=== PATIENT | male | born 1985 | race Caucasian/White ===

== ENCOUNTER 2021-10-20 00:59 | Day surgery (SDC) | payer OTHER, SELFPAY ==
[2021-10-09 09:04] VITALS: BMI 27.4
[2021-10-20 07:45] VITALS: BP 112/75; PULSE 68; RESP 16; TEMP 36.2; O2SAT 100
[2021-10-20] MEDS: LACTATED RINGERS 1,000 ML 150 ML IV CONT (07:53)
--- NOTE | 2021-10-20 08:48 | WPDANESEPPF ---
Anes - Initial Pre Proc Eval Procedure: Operation Date: 10/20/21 09:00 Proposed Procedures p Esophagogastroduodenoscopy - Darryl Owusu MD Date/Time: 10/20/21 08:48 Surgeon: Darryl Owusu MD Pre Op Diagnosis: Baer's Esophagus Patient Data Age: 36 Gender: M Height: 1.7 m Weight: 79.5 kg Last Vital Signs Temp 97.1 F L 10/20/21 07:45 Pulse 68 10/20/21 07:45 Resp 16 10/20/21 07:45 BP 112/75 10/20/21 07:45 Pulse Ox 100 10/20/21 07:45 O2 Del Method Room Air 10/20/21 07:45 Allergies Allergy/AdvReac Type Severity Reaction Status Date / Time diphenhydramine Allergy Mild Hives / Verified 10/20/21 07:44 Red Face Home Medications Medication Instructions Recorded Confirmed Type levothyroxine 50 mcg capsule 50 mcg PO DAILY 10/23/19 10/20/21 History montelukast 10 mg tablet 10 mg PO DAILY 10/23/19 10/20/21 History pantoprazole 40 mg tablet,delayed 40 mg PO QAM 10/23/19 10/20/21 History release amlodipine 10 mg tablet 10 mg PO DAILY 10/09/21 10/20/21 History losartan 100 mg tablet 100 mg PO DAILY 10/09/21 10/20/21 History Patient hx anesthesia problems: none Family hx anesthesia problems: none Results Review: All pre-operative results and documents have been reviewed as part of the pre-operative evaluation. [facility] Family History Family History Father Heart attack Sibling Thyroid condition Social History Social History Smoking status: Never smoker Alcohol intake: never Substance use: current Substance use type: marijuana Other substance usage details: daily marijuana for anxiety and stress Living arrangements: with family Additional living arrangements comments: his son lives with him Spiritual care concerns: No Anes - Eval Final PreProcedure Day of Procedure 10/20/21 08:48 Patient weight: normal Heart: regular rate and rhythm Lungs: clear to auscultation Airway: Mallampati scale class II Neurological: alert and oriented Last oral intake: >/= 8 hours ASA classification: II Emergent: no Anesthetic plan: proceed Anesthesia type and monitoring: general GIVS and standard monitoring Results Review: All pre-operative results and documents have been reviewed as part of the pre-operative evaluation. Informed Consent: The patient's anesthetic plan and its attendant risks and benefits were discussed with the patient/family/POA. Questions were solicited and answers provided to the satisfaction of the patient/family/POA.
--- NOTE | 2021-10-20 08:49 | PM.HPGS ---
History of Present Illness History of Present Illness Consent: Risks, benefits, and alternatives have been discussed and questions answered. Patient agrees to proceed with procedure. Chief complaint: Baer's Esophagus Narrative: Emerson Gloria is a 36 year old male with history of Baer's on ppi daily, his last EGD 5 years ago and was told to follow-up in 3. GERD is controlled with ppi Review of Systems Constitutional: Constitutional: Denies headache(s) and Denies weakness Eyes: Eyes: Denies blurry vision ENT: Reports Normal hearing present, Denies headache(s) and Denies neck pain Cardiovascular: Cardiovascular: Denies chest pain and Denies dyspnea Respiratory: Respiratory: Denies dyspnea Gastrointestinal: Gastrointestinal: Reports no additional gastrointestinal complaints Genitourinary: Genitourinary: Denies dysuria Musculoskeletal: Musculoskeletal: Denies neck pain Integumentary/Breasts: Skin/Breast: Denies dry skin Neurologic: Reports Normal hearing present, Denies headache(s) and Denies weakness Psychiatric: Psychiatric: Denies anxiety Endocrine: Endocrine: Denies change in body appearance Hematologic/Lymphatic: Hematologic/Lymphatic: Denies easy bleeding Allergic/Immunologic: Allergic/Immunologic: Denies urticaria PMFSH Past Medical History Medical History (Updated 10/20/21 @ 08:50 by Darryl Owusu MD) Baer esophagus GERD (gastroesophageal reflux disease) Family History Family History Father Heart attack Sibling Thyroid condition Social History Social History Smoking status: Never smoker Alcohol intake: never Substance use: current Substance use type: marijuana Other substance usage details: daily marijuana for anxiety and stress Living arrangements: with family Additional living arrangements comments: his son lives with him Spiritual care concerns: No Meds Home Medications and Allergies Home Medications Medication Instructions Recorded Confirmed Type levothyroxine 50 mcg capsule 50 mcg PO DAILY 10/23/19 10/20/21 History montelukast 10 mg tablet 10 mg PO DAILY 10/23/19 10/20/21 History pantoprazole 40 mg tablet,delayed 40 mg PO QAM 10/23/19 10/20/21 History release amlodipine 10 mg tablet 10 mg PO DAILY 10/09/21 10/20/21 History losartan 100 mg tablet 100 mg PO DAILY 10/09/21 10/20/21 History Allergies Allergy/AdvReac Type Severity Reaction Status Date / Time diphenhydramine Allergy Mild Hives / Verified 10/20/21 07:44 Red Face Vital Signs Vital Signs - 24 hr 10/20/21 07:45 Temperature 97.1 F L Pulse Rate 68 Respiratory Rate 16 Blood Pressure 112/75 Pulse Oximetry 100 Oxygen Delivery Room Air Exam Const: General: comfortable and no acute distress HENMT: General nose exam: Normal nares present Eyes: General: appearance normal, both eyes and all related structures Neck: Neck: no JVD Resp: Auscultation: clear to auscultation bilaterally Cardio: Rate: regular rate Rhythm: regular rhythm GI: Inspection: non-distended GI Palp: Yes Soft to palpation Skin: General skin exam: normal color Neuro: General: gait normal Speech: normal speech Extrem: General: normal to inspection Psych: Mental Status: mental status grossly normal Assessment and Plan Assessment and plan (1) GERD (gastroesophageal reflux disease): Code(s): K21.9 - Gastro-esophageal reflux disease without esophagitis Status: Acute Assessment and Plan: on ppi daily (2) Baer esophagus: Code(s): K22.70 - Baer's esophagus without dysplasia Status: Acute Assessment and Plan: egd with bx
[2021-10-20 09:00] VITALS: BP 122/78; PULSE 76; RESP 22; O2SAT 98
[2021-10-20 09:10] VITALS: BP 120/78; PULSE 76; RESP 22; O2SAT 98
[2021-10-20 09:20] VITALS: BP 129/76; PULSE 68; RESP 22; O2SAT 98
== END 2021-10-20 09:30 | disposition home or self-care (01) ==
PROVIDERS: PCP Family Medicine; Visit Provider Internal Medicine Gastroenterology
PROC: 0DJ08ZZ Inspection of Upper Intestinal Tract, Via Natural or Artificial Opening Endoscopic (ICD-10-PCS; CPT 43235; principal; 2021-10-20 09:00)
DX: K21.9 Gastro-esophageal reflux disease without esophagitis (principal); K22.70 Barrett's esophagus without dysplasia; F12.90 Cannabis use, unspecified, uncomplicated; F41.9 Anxiety disorder, unspecified; Z87.19 Personal history of other diseases of the digestive system
CPT/HCPCS: 43239; 88305; 88313; J2704; J7120

== ENCOUNTER 2022-01-12 14:20 | Emergency (ER) | payer OTHER, SELFPAY ==
--- NOTE | ~2022-01-12 | XR_ITS ---
XR hand LT min 3V 01/12/2022 14:46 Indication: Power total accident Procedure: 3 views of the left hand Comparison: 12/29/2005 Findings: There is an avulsion fracture tip of the first distal phalanx. There is a comminuted extra- articular fracture second distal phalanx. There is partial amputation of the third digit at the dista l phalanx. There is a nondisplaced fracture of the tuft of the fourth distal phalanx. No foreign bodi es are identified. Carpal bones intact. No metacarpal fractures. Impression: 1: Multiple left hand fractures, all involving the distal phalanges of the first-fourth digits with p artial amputation of the third distal phalanx. Reviewed, dictated and finalized at location B. Impression: 1: Multiple left hand fractures, all involving the distal phalanges of the firs t-fourth digits with partial amputation of the third distal phalanx.
[2022-01-12 14:23] VITALS: BP 143/99; PULSE 102; RESP 30; TEMP 36.7; O2SAT 99
[2022-01-12] MEDS: MORPHINE SULFATE (*CRX) 4 MG/ML INJ (14:31)
[2022-01-12] MEDS: SODIUM CHLORIDE 0.9% IV 1,000 ML 999 ML IV CONT (14:44)
[2022-01-12] MEDS: ONDANSETRON INJ 4 MG/2 ML VIAL IV PUSH (14:44)
--- NOTE | 2022-01-12 14:59 | ED.WOUNDLAC ---
HPI - Wound/Laceration General Chief Complaint: Wound/Laceration Stated Complaint: table saw vs left hand missing fingers Time Seen by Provider: 01/12/22 14:28 Source: patient and RN notes reviewed Mode of arrival: ambulatory Limitations: no limitations History of Present Illness HPI narrative: This is 36 year old left hand dominant male who presents for evaluation of left hand injury. He was using a table saw when when it accidentally kicked back cutting all his left finger. He has amputation of tip of his left finger. He is unsure of his last tetanus. Related Data Home Medications Medication Instructions Recorded Confirmed levothyroxine 50 mcg capsule 50 mcg PO DAILY 10/23/19 10/20/21 montelukast 10 mg tablet 10 mg PO DAILY 10/23/19 10/20/21 pantoprazole 40 mg tablet,delayed 40 mg PO QAM 10/23/19 10/20/21 release amlodipine 10 mg tablet 10 mg PO DAILY 10/09/21 10/20/21 losartan 100 mg tablet 100 mg PO DAILY 10/09/21 10/20/21 Allergies Allergy/AdvReac Type Severity Reaction Status Date / Time diphenhydramine Allergy Mild Hives / Verified 10/20/21 07:44 Red Face Review of Systems Review of Systems: All systems reviewed & are unremarkable except as noted in HPI and below PMFSH Past Medical History Medical History Baer esophagus GERD (gastroesophageal reflux disease) Family History Family History Father Heart attack Sibling Thyroid condition Social History Social History Smoking status: Never smoker Alcohol intake: never Substance use: current Substance use type: marijuana Other substance usage details: daily marijuana for anxiety and stress Additional living arrangements comments: his son lives with him Spiritual care concerns: No Exam Const: General: alert Nutritional Appearance: well nourished Orientation/consciousness: patient oriented x3 Other: in acute pain HENMT: Head: normal to inspection Eyes: EOM: EOMs intact bilaterally Chest: Chest palpation & inspection: normal inspection of the chest Resp: Effort & Inspection: normal respiratory effort Auscultation: clear to auscultation bilaterally Cardio: Rate: regular rate Rhythm: regular rhythm Heart sounds: no murmurs Skin: Other: left hand with lacerations to all fingers. He has laceration on finger pad of left thumb , tip appears to have blood supply with sensation; there is wound on 2nd left digit mid dorsal with 2 cm laceration there is ampution of 3rd finger at diagonal from tip to dip with most of nail gone there is wound to 4th finer though nail bed small wound to tip of finger finger. Neuro: General: patient oriented x3, moves all extremities and CN's II-XI intact bilaterally Extrem: Other: see skin, seems to have movement at finger joints. Psych: Mental Status: mental status grossly normal Affect: normal affect Attitude: cooperative Course Reevaluation(s) Reevaluation #1: We do not have hand or plastic service available today. PAtient have finger amputation and multiple open finger fractures. I spoke with Dr. Anderson concrete craftsman for plastic and she request patient to be sent to [facility]. Dr. Niles to in ED accepts patient. patient understands that he will be transferred to ER. He has been given tdap vaccination today. Also given 1 gram of ancef. Date: 01/12/22 Time: 16:47 Vital Signs Vital signs: Vital Signs Temperature 98.0 F 01/12/22 14:23 Pulse Rate 102 H 01/12/22 14:23 Respiratory Rate 30 H 01/12/22 14:23 Blood Pressure 143/99 H 01/12/22 14:23 Pulse Oximetry 99 01/12/22 14:23 Temperature 98.0 F 01/12/22 16:58 Pulse Rate 82 01/12/22 16:58 Respiratory Rate 18 01/12/22 16:58 Blood Pressure 155/72 H 01/12/22 16:58 Pulse Oximetry 99 01/12/22 16:58 MDM -
[2022-01-12] MEDS: HYDROmorphone HCL INJ (*CRX) 1 MG/ML SYR IV PUSH (15:33)
[2022-01-12] MEDS: TETANUS,DIPHTHERIA,AC PERTUSSIS ADULT (0.5 ML) BOOSTRIX IM (16:06)
[2022-01-12 16:58] VITALS: BP 155/72; PULSE 82; RESP 18; TEMP 36.7; O2SAT 99
== END 2022-01-12 17:21 | disposition short-term general hospital (02) ==
PROVIDERS: Emergency Provider General Practice; PCP Family Medicine
DX: S68.623A Partial traumatic transphalangeal amputation of left middle finger, initial encounter (principal); S62.522B Displaced fracture of distal phalanx of left thumb, initial encounter for open fracture; S62.631B Displaced fracture of distal phalanx of left index finger, initial encounter for open fracture; S62.665B Nondisplaced fracture of distal phalanx of left ring finger, initial encounter for open fracture; Z23 Encounter for immunization; K22.70 Barrett's esophagus without dysplasia; K21.9 Gastro-esophageal reflux disease without esophagitis; W31.2XXA Contact with powered woodworking and forming machines, initial encounter
CPT/HCPCS: 73130; 90471; 90715; 96365; 96375; 99285; J0690; J1170; J2270; J2405; J7030